=== PATIENT | female | born 1995 | race American Indian/Alaskan Native ===

== ENCOUNTER 2020-06-20 20:38 | Emergency (ER) | payer OTHER ==
[2020-06-20] MEDS ORDERED: LIDOCAINE 1%-EPI 1:100000 20 ML MDV SUBQ STA (20:52)
--- NOTE | 2020-06-20 20:58 | ED Physician Documentation ---
PD HPI UPPER EXT INJURY - Stated complaint Stated Complaint: RT HAND LAC/INJ - Chief complaint Chief Complaint: Laceration - History obtained from History obtained from: Patient - History of Present Illness Location: Right, Hand Type of injury: Laceration Where injury occurred: Home Timing - onset: How many minutes ago (30) Timing - duration: Minutes (30) Timing - details: Abrupt onset Pain level max: 5 Pain level now: 4 Improved by: Rest Worsened by: Moving, Palpating Recently seen: Not recently seen - Additonal information Additional information: Right hand laceration while cutting an avocado tonight. Patient is left-handed. Tetanus up-to-date Review of Systems Constitutional: denies: Fever : denies: Now [facility] PAST MEDICAL HISTORY - Past Medical History Past Medical History: No - Past Surgical History Past Surgical History: No - Present Medications Home Medications: Ambulatory Orders Medication Instructions Recorded Confirmed No Known Home Medications 06/20/20 06/20/20 - Allergies Allergies/Adverse Reactions: Allergies Allergy/AdvReac Type Severity Reaction Status Date / Time No Known Drug Allergies Allergy Verified 06/20/20 20:44 - Living Situation Living Arrangement: reports: At home - Family History Family history: reports: Non contributory - Immunizations Immunizations: TDAP current <10years PD ED PE NORMAL - Vitals Vital signs reviewed: Yes - General General: Alert and oriented X 3, No acute distress - HEENT HEENT: Moist mucous membranes - Derm Derm: Warm and dry - Neuro Neuro: Alert and oriented X 3 PD ED PE EXPANDED - Extremities [place] UE/Hands Visual: 1 - laceration (4cm, curved, into fat. NVI.) Results - Vitals Vitals: Vital Signs - 24 hr 06/20/20 20:44 Temperature 37.1 C Heart Rate 72 Respiratory 19 Rate Blood Pressure 133/80 H O2 Saturation 100 Oxygen O2 Source Room air Procedures - Laceration (location) R hand Length in cm: 4 Wound type: Curved, Into subcut fat Neurovascular status: Sensory intact, Motor intact, Vascular intact Tendon involvement: Tendon intact Anesthesia: Lidocaine 1% with epi Wound preparation: Irrigated copiously NS, Wound explored, To the base. No: FB identified Skin layer closure: Nylon, Interrupted, Size #-0 - enter number (4) Other: Patient tolerated well, No complications, Neurovascular intact, Dressing applied, Tetanus UTD PD MEDICAL DECISION MAKING - ED course Complexity details: considered differential, d/w patient ED course: 24-year-old female with a right hand laceration. Patient is left-handed. Lace ration repaired. Neurovascular intact. No tendon injury. No bony injury. Warnings of infection and instructions on wound care given at bedside. Also counseled on how to minimize scarring. Patient counseled regarding signs and symptoms for which I believe and urgent re-evaluation would be necessary. Patient with good understanding of and agreement to plan and is comfortable going home at this time This document was made in part using voice recognition software. While efforts are made to proofread this document, sound alike and grammatical errors may occur. Departure - Departure Disposition: 01 Home, Self Care Clinical Impression: Hand laceration Qualifiers: Encounter type: initial encounter Foreign body presence: without foreign body Laterality: right Qualified Code(s): S61.411A - Laceration without foreign body of right hand, initial encounter Condition: Good Instructions: ED Laceration Hand Follow-Up: CATHERINE ROSAS MD [Primary Care Provider] - Comments: The sutures should be removed in about 10 to 14 days with your doctor. Return if you worsen. Keep the wound clean. Return if you notice redness, swelling or drainage from the wound.
[2020-06-20 21:47] VITALS: BP 111/68
== END 2020-06-20 21:47 | disposition home or self-care (01) ==
LOC: ED 20:38
DX: S61.411A Laceration without foreign body of right hand, initial encounter (principal); W26.0XXA Contact with knife, initial encounter; Y93.G1 Activity, food preparation and clean up; Y92.009 Unspecified place in unspecified non-institutional (private) residence as the place of occurrence of the external cause
CPT/HCPCS: 12002; 99281; 99282